=== PATIENT | female | born 1995 | race African-American/Black ===

== ENCOUNTER 2018-08-01 09:41 | Emergency (ER) | payer SELFPAY ==
[~2018-08-01] VITALS: Ht 162.6 cm; Wt 58.0 kg
[2018-08-01] MEDS ORDERED: SODIUM CHLORIDE 0.9% 1,000 ML IV ONE (10:14)
[2018-08-01] MEDS ORDERED: ONDANSETRON HCL 4MG/2ML INJ IV STA (10:14)
[2018-08-01 10:43] LABS: BASOPHILS % 0.6 % (0.0-2.0); EOSINOPHILS % 0.3 % (0.0-5.0); HEMATOCRIT. 39.7 % (36.0-48.0); HEMOGLOBIN. 13.1 g/dL (12.0-16.0); LYMPHOCYTES % 14.3 % (20.0-50.0); MEAN CORPUSCULAR HEMOGLOBIN 30.9 pg (28.0-32.0); MEAN CORPUSCULAR VOLUME 93.3 fL (81.0-99.0); MEAN PLATELET VOLUME 8.7 fl (7.4-10.4); MONOCYTES % 5.6 % (2.0-8.0); NEUTROPHILS % 79.2 % (40.0-76.0); PLATELET 298 x1000/uL (130-400); RED BLOOD CELL COUNT 4.25 mill/uL (4.2-5.4); RED CELL DISTRIBUTION WIDTH 14.6 % (11.6-14.6)
[2018-08-01 10:49] LABS: CHLORIDE 106 mEq/L (98-107)
[2018-08-01 10:51] LABS: CLARITY URINE CLOUDY (CLEAR); COLOR URINE DARK YELLOW (YELLOW); INR 1.1; KETONES URINE 2+ (NEGATIVE); LEUKOCYTE ESTERASE URINE 2+ (NEGATIVE); NITRITE URINE POSITIVE (NEGATIVE); OCCULT BLOOD URINE NEGATIVE (NEGATIVE); PH URINE 6.5 (4.5-8.0); PROTEIN URINE TRACE (NEGATIVE); PROTHROMBIN TIME 10.8 sec (9.1-11.1); SPECIFIC GRAVITY URINE 1.027 (1.005-1.030)
[2018-08-01] MEDS ORDERED: CEFTRIAXONE 1 G PREMIX 50 ML IV ONE (12:15)
[2018-08-01 13:42] VITALS: BP 121/68
== END 2018-08-01 13:44 | disposition home or self-care (01) ==
LOC: ER 09:41
DX: N39.0 Urinary tract infection, site not specified (principal); D72.829 Elevated white blood cell count, unspecified; D64.9 Anemia, unspecified
CPT/HCPCS: 36415; 80053; 81003; 81025; 83690; 85025; 85610; 96361; 96365; 96375; 99283; J0696; J2405; J7030

== ENCOUNTER 2022-05-10 10:38 | Emergency (ER) | payer MEDICAID ==
[~2022-05-10] VITALS: Ht 167.6 cm; Wt 72.0 kg
[2022-05-10] MEDS ORDERED: IBUP-2029 MT (12:22)
[2022-05-10] MEDS ORDERED: BENZ1LOZ73 MT (12:23)
[2022-05-10] MEDS ORDERED: ONDANSETRON 4MG ODT PO ONE (12:30)
[2022-05-10] MEDS ORDERED: IBUPROFEN 600MG TABLET PO ONE (12:30)
[2022-05-10] MEDS ORDERED: THROAT LOZENGES-BENZOCAINE/MENTH/CETYLPYRD CL LOZENGES MM PRN (12:30)
[2022-05-10 13:26] VITALS: BP 130/88
== END 2022-05-10 13:27 | disposition home or self-care (01) ==
LOC: ER 10:38
DX: J06.9 Acute upper respiratory infection, unspecified (principal)
CPT/HCPCS: 81025; 99283; Q0162

== ENCOUNTER 2022-06-05 14:02 | Emergency (ER) | payer MEDICAID ==
[~2022-06-05 14:02] MED LIST: BENZ1LOZ73 MT; IBUP-2029 MT
== END 2022-06-05 15:29 | disposition left against medical advice (07) ==
LOC: ER 14:02
DX: Z53.21 Procedure and treatment not carried out due to patient leaving prior to being seen by health care provider (principal)

== ENCOUNTER 2022-10-29 01:35 | Emergency (ER) | payer MEDICAID, OTHER ==
[~2022-10-29] VITALS: Ht 162.6 cm; Wt 58.9 kg
[2022-10-29 01:42] VITALS: BP 161/109
== END 2022-10-29 04:16 | disposition left against medical advice (07) ==
LOC: ER 01:35
DX: Z53.21 Procedure and treatment not carried out due to patient leaving prior to being seen by health care provider (principal)
CPT/HCPCS: 99281

== ENCOUNTER 2023-08-18 20:31 | Emergency (ER) | payer MEDICAID, OTHER ==
[~2023-08-18] VITALS: Ht 162.6 cm; Wt 62.0 kg
[2023-08-18 20:34] VITALS: BP 138/81; RESP 13; TEMP 98.6; O2SAT 100
[2023-08-18 20:35] VITALS: PULSE 94
== END 2023-08-18 21:00 | disposition left against medical advice (07) ==
LOC: ER 20:31
DX: R51.9 Headache, unspecified (principal); Z53.21 Procedure and treatment not carried out due to patient leaving prior to being seen by health care provider
CPT/HCPCS: 99281